=== PATIENT | male | born 1990 | race Caucasian/White ===

== ENCOUNTER 2021-05-05 16:15 | Emergency (ER) | payer OTHER ==
[~2021-05-05 16:15] MED LIST: CYCLOBENZAPRINE5 MG PO; MOBIC15 MG PO
[2021-05-05 17:39] LABS: HEMOGLOBIN 14.7 gm/dl (14.0-17.5); RED BLOOD COUNT 5.02 M/UL (4.20-5.50); WHITE BLOOD COUNT 6.3 K/UL (4.5-11.0)
[2021-05-05 17:54] LABS: BUN/CREATININE RATIO 12 (0-10)
== END 2021-05-05 22:05 | disposition home or self-care (01) ==
LOC: ER1 16:15
PROVIDERS: Physician Assistant
DX: E86.0 Dehydration (principal)
CPT/HCPCS: 80053; 82550; 82553; 83874; 84484; 85025; 99284